=== PATIENT | female | born 1940 | race Two or more races ===

== ENCOUNTER 2022-02-14 07:37 | Inpatient (IN) | payer SELFPAY ==
[~2022-02-14] VITALS: Ht 152.4 cm; Wt 63.7 kg
[2022-02-14 08:33] LABS: BASOPHILS % 0.5 % (0.0-2.0); EOSINOPHILS % 4.8 % (0.0-5.0); HEMATOCRIT. 36.7 % (36.0-48.0); HEMOGLOBIN. 12.1 g/dL (12.0-16.0); LYMPHOCYTES % 24.6 % (20.0-50.0); MEAN CORPUSCULAR HEMOGLOBIN 29.4 pg (28.0-32.0); MEAN PLATELET VOLUME 8.9 fl (7.4-10.4); MONOCYTES % 10.3 % (2.0-8.0); NEUTROPHILS % 59.8 % (40.0-76.0); PLATELET 193 x1000/uL (130-400); RED BLOOD CELL COUNT 4.13 mill/uL (4.2-5.4); RED CELL DISTRIBUTION WIDTH 15.8 % (11.6-14.6)
[2022-02-14 08:38] LABS: CHLORIDE 113 mEq/L (98-107)
[2022-02-14] MEDS ORDERED: ALBUTEROL (0.083%) 2.5MG/3ML NEB HHN STA (08:50)
[2022-02-14] MEDS ORDERED: IPRATROPIUM BROMIDE (0.02%) 0.5MG/2.5ML NEB HHN STA (08:50)
[2022-02-14] MEDS ORDERED: METHYLPREDNISOLONE SOD SUCC 125 MG/2 ML VIAL IV STA (08:50)
[2022-02-14 09:43] LABS: BG CARBOXYHEMOGLOBIN 0.3 % (0.5-1.5); BG DEOXYHEMOGLOBIN 5.9 % (0.0-5.0); BG FRACTION INSPIRED OXYGEN 21; BG METHEMOGLOBIN 0.3 % (0.0-1.5); BG OXYGEN SATURATION 94.1 % (92.0-98.5); BG OXYHEMOGLOBIN 93.5 % (94.0-97.0); BG PCO2 28.3 mmHg (35.0-45.0); BG PH 7.369 (7.350-7.450); BG PO2 70.7 mmHg (75.0-100.0); BG SAMPLE SITE RIGHT RADIAL; BG TOTAL HEMOGLOBIN 11.8 g/dL (12.0-18.0); BG VENT MODE ROOM AIR
[2022-02-14] MEDS ORDERED: IPRATROPIUM/ALBUTEROL 0.5-3(2.5)MG/3ML NEB NEB PRN (10:30)
[2022-02-14] MEDS ORDERED: ENOXAPARIN 40MG/0.4ML SYR SUBCUT SCH (10:30)
[2022-02-14] MEDS ORDERED: CLONIDINE 0.1MG TABLET PO PRN (10:30)
[2022-02-14] MEDS ORDERED: ONDANSETRON HCL 4MG/2ML INJ IV PRN (10:30)
[2022-02-14] MEDS ORDERED: ACETAMINOPHEN 325MG TABLET PO PRN ×2 (10:30)
[2022-02-14] MEDS ORDERED: MAGNESIUM/ALUMINUM HYDROXIDE/SIMETHICONE 30ML UDC PO PRN (10:30)
[2022-02-14] MEDS ORDERED: DOCUSATE SODIUM 100MG CAPSULE PO PRN (10:30)
[2022-02-14] MEDS ORDERED: GUAIFENESIN 200MG/10ML SUGAR FREE UDC PO PRN (10:30)
[2022-02-14] MEDS ORDERED: NITROGLYCERIN 0.4MG TABLET SL SL PRN (10:30)
[2022-02-14 11:41] LABS: T4 FREE 1.14 ng/dL (0.76-1.46)
[2022-02-14] MEDS: ASPIRIN 325MG EC TABLET PO SCH (12:10)
[2022-02-14] MEDS: GUAIFENESIN/DM 600MG/30MG ER TAB 12HR PO SCH ×2 (12:10→22:04)
[2022-02-14 12:18] LABS: FOLIC ACID (FOLATE) SERUM >20 ng/mL ng/mL (>5.38); VITAMIN B12 SERUM >2000 pg/mL pg/mL (211-911)
[2022-02-14] MEDS: AMLODIPINE 10MG TABLET PO SCH (13:53)
[2022-02-14] MEDS: METHYLPREDNISOLONE SOD SUCC 125 MG/2 ML VIAL IV SCH ×2 (13:54→22:04)
[2022-02-14] MEDS: ENOXAPARIN 30MG/0.3ML SYR SUBCUT SCH (13:54)
[2022-02-14 14:22] LABS: CREATINE KINASE MB FRACTION 1.5 ng/mL (0.5-3.6)
[2022-02-14] MEDS ORDERED: SODIUM CHLORIDE 0.9% 1,000 ML IV ONE (15:15)
[2022-02-14] MEDS: IPRATROPIUM/ALBUTEROL 0.5-3(2.5)MG/3ML NEB HHN SCH ×2 (17:07→20:40)
[2022-02-14] MEDS ORDERED: ZOLPIDEM TARTRATE 5MG TABLET PO PRN (21:00)
[2022-02-14] MEDS: FAMOTIDINE 20MG TABLET PO SCH (22:04)
[2022-02-14 22:35] LABS: CREATINE KINASE 86 IU/L (26-192); CREATINE KINASE MB FRACTION <0.5 ng/mL ng/mL (0.5-3.6)
[2022-02-14 22:47] VITALS: BP 145/70
[2022-02-14 22:50] VITALS: BP 145/70
[2022-02-14 23:36] VITALS: BP 145/70
[2022-02-15] VITALS: BP 138/72
[2022-02-15] MEDS: IPRATROPIUM/ALBUTEROL 0.5-3(2.5)MG/3ML NEB HHN SCH ×6 (00:42→21:11)
[2022-02-15 04:00] VITALS: BP 136/58
[2022-02-15] MEDS: METHYLPREDNISOLONE SOD SUCC 125 MG/2 ML VIAL IV SCH ×3 (05:12→21:30)
[2022-02-15 07:52] LABS: CHLORIDE 114 mEq/L (98-107)
[2022-02-15 08:00] VITALS: BP 138/79
[2022-02-15 08:02] LABS: PHOSPHORUS 3.4 mg/dL (2.5-4.9)
[2022-02-15 08:07] LABS: HEMATOCRIT. 31.9 % (36.0-48.0); HEMOGLOBIN. 10.5 g/dL (12.0-16.0); MEAN CORPUSCULAR HEMOGLOBIN 29.3 pg (28.0-32.0); MEAN PLATELET VOLUME 9.3 fl (7.4-10.4); PLATELET 180 x1000/uL (130-400); RED BLOOD CELL COUNT 3.58 mill/uL (4.2-5.4); RED CELL DISTRIBUTION WIDTH 15.6 % (11.6-14.6)
[2022-02-15] MEDS: GUAIFENESIN/DM 600MG/30MG ER TAB 12HR PO SCH ×2 (10:15→21:30)
[2022-02-15] MEDS: AMLODIPINE 10MG TABLET PO SCH (10:15)
[2022-02-15] MEDS: ASPIRIN 325MG EC TABLET PO SCH (10:16)
[2022-02-15 12:00] VITALS: BP 142/63
[2022-02-15] MEDS: ENOXAPARIN 30MG/0.3ML SYR SUBCUT SCH (13:16)
[2022-02-15 13:32] LABS: PLATELET ESTIMATE NORMAL
[2022-02-15 16:00] VITALS: BP 126/62
[2022-02-15 20:00] VITALS: BP 118/59
[2022-02-15] MEDS: FAMOTIDINE 20MG TABLET PO SCH (21:30)
[2022-02-16] VITALS: BP 136/73
[2022-02-16] MEDS: IPRATROPIUM/ALBUTEROL 0.5-3(2.5)MG/3ML NEB HHN SCH ×6 (00:57→21:23)
[2022-02-16 04:00] VITALS: BP 119/65
[2022-02-16] MEDS: METHYLPREDNISOLONE SOD SUCC 125 MG/2 ML VIAL IV SCH ×3 (06:29→21:11)
[2022-02-16 08:00] VITALS: BP 122/69
[2022-02-16] MEDS: GUAIFENESIN/DM 600MG/30MG ER TAB 12HR PO SCH ×2 (09:00→21:08)
[2022-02-16] MEDS ORDERED: DEXTROSE 50% WATER 50ML SYRINGE IV PRN (10:00)
[2022-02-16] MEDS ORDERED: LACTULOSE 20G/30ML UDC PO SCH (10:00)
[2022-02-16] MEDS: ENOXAPARIN 30MG/0.3ML SYR SUBCUT SCH (10:09)
[2022-02-16] MEDS: AMLODIPINE 10MG TABLET PO SCH (10:10)
[2022-02-16] MEDS: ASPIRIN 325MG EC TABLET PO SCH (10:10)
[2022-02-16 11:47] VITALS: BP 157/88
[2022-02-16] MEDS: BLOOD SUGAR DIAGNOSTIC STRIP TEST SCH ×3 (13:30→21:23)
[2022-02-16] MEDS: INSULIN LISPRO 100 UNITS/ML SUBCUT SCH ×3 (14:06→21:23)
[2022-02-16 16:00] VITALS: BP 120/65
[2022-02-16 19:01] LABS: HEMATOCRIT 34.9 % (36.0-48.0); HEMOGLOBIN 11.4 g/dL (12.0-16.0); MEAN CORPUSCULAR HEMOGLOBIN 28.8 pg (28.0-32.0); MEAN CORPUSCULAR VOLUME 88.6 fL (81.0-99.0); PLATELET 202 x1000/uL (130-400); RED BLOOD CELL COUNT 3.94 mill/uL (4.2-5.4)
[2022-02-16 20:00] VITALS: BP 140/67
[2022-02-16] MEDS: FAMOTIDINE 20MG TABLET PO SCH (21:08)
[2022-02-17] VITALS: BP 103/50
[2022-02-17] MEDS: IPRATROPIUM/ALBUTEROL 0.5-3(2.5)MG/3ML NEB HHN SCH ×3 (00:49→08:53)
[2022-02-17 04:00] VITALS: BP 111/52
[2022-02-17] MEDS: METHYLPREDNISOLONE SOD SUCC 125 MG/2 ML VIAL IV SCH (05:52)
[2022-02-17] MEDS: BLOOD SUGAR DIAGNOSTIC STRIP TEST SCH ×2 (05:52→13:30)
[2022-02-17 06:11] LABS: HEMATOCRIT 29.6 % (36.0-48.0); HEMOGLOBIN 9.7 g/dL (12.0-16.0); MEAN CORPUSCULAR HEMOGLOBIN 29.1 pg (28.0-32.0); MEAN CORPUSCULAR VOLUME 89.3 fL (81.0-99.0); PLATELET 166 x1000/uL (130-400); RED BLOOD CELL COUNT 3.32 mill/uL (4.2-5.4); RED CELL DISTRIBUTION WIDTH 16.3 % (11.6-14.6)
[2022-02-17 08:00] VITALS: BP 124/62
[2022-02-17] MEDS: GUAIFENESIN/DM 600MG/30MG ER TAB 12HR PO SCH (10:02)
[2022-02-17] MEDS: AMLODIPINE 10MG TABLET PO SCH (10:02)
[2022-02-17] MEDS: ENOXAPARIN 30MG/0.3ML SYR SUBCUT SCH (10:03)
[2022-02-17] MEDS: ASPIRIN 325MG EC TABLET PO SCH (10:03)
[2022-02-17] MEDS: INSULIN LISPRO 100 UNITS/ML SUBCUT SCH ×2 (10:05→13:44)
[2022-02-17] MEDS ORDERED: AMLO10TA80 PO (11:22)
[2022-02-17] MEDS ORDERED: P20 MT (11:22)
[2022-02-17] MEDS ORDERED: GUAI-741 PO (11:22)
[2022-02-17] MEDS ORDERED: ALBU6.7H9 INH (11:22)
[2022-02-17] MEDS ORDERED: FLUT1DIS2 INH (11:22)
[2022-02-17 12:00] VITALS: BP 113/66
[2022-02-17 12:33] VITALS: BP 124/62
== END 2022-02-17 15:00 | disposition home or self-care (01) | DRG 141 ==
LOC: ER 07:51 → 7WST 09:18 → EDBEDREQ 09:37 → EDBEDREQTM 09:37 → SUPCPDRO 19:10 → ENRESERV 20:17
PROVIDERS: ADMIT Internal Medicine; ATTEND Internal Medicine
DX: J45.901 Unspecified asthma with (acute) exacerbation (principal); E87.4 Mixed disorder of acid-base balance; I21.A1 Myocardial infarction type 2; N17.9 Acute kidney failure, unspecified; D64.9 Anemia, unspecified; R09.02 Hypoxemia; E03.8 Other specified hypothyroidism; D72.829 Elevated white blood cell count, unspecified; R73.9 Hyperglycemia, unspecified; R94.6 Abnormal results of thyroid function studies; Z20.822 Contact with and (suspected) exposure to COVID-19
CPT/HCPCS: 36415; 36600; 71045; 76770; 78582; 80048; 80053; 82375; 82550; 82553; 82607; 82746; 82805; 82962; 83036; 83540; 83550; 83735; 83880; 84100; 84439; 84443; 84484; 85025; 85027; 85379; 87426; 93005; 93970; 94640; 94644; 94664; 99291; A9558; C9803; J1650; J1815; J2930

== ENCOUNTER 2023-05-25 11:42 | Emergency (ER) | payer MEDICAID ==
[~2023-05-25] VITALS: Ht 147.3 cm; Wt 62.6 kg
[~2023-05-25 11:42] MED LIST: ALBU6.7H3 INH; AMLO10TA80 PO; FLUT1DIS2 INH; GUAI-741 PO; P20 MT
[2023-05-25 11:50] VITALS: O2SAT 100
[2023-05-25 13:22] LABS: BASOPHILS % 0.7 % (0.0-2.0); EOSINOPHILS % 5.1 % (0.0-5.0); HEMATOCRIT. 32.4 % (36.0-48.0); HEMOGLOBIN. 10.5 g/dL (12.0-16.0); LYMPHOCYTES % 15.9 % (20.0-50.0); MEAN CORPUSCULAR HEMOGLOBIN 28.6 pg (28.0-32.0); MEAN CORPUSCULAR HGB CONC 32.5 g/dL (31.0-37.0); MEAN PLATELET VOLUME 8.5 fl (7.4-10.4); MONOCYTES % 12.7 % (2.0-8.0); NEUTROPHILS % 65.6 % (40.0-76.0); PLATELET 264 x1000/uL (130-400); RED BLOOD CELL COUNT 3.68 mill/uL (4.2-5.4); RED CELL DISTRIBUTION WIDTH 15.1 % (11.6-14.6)
[2023-05-25 13:30] LABS: ALANINE AMINOTRANSFERASE 14 IU/L (10-49); ALBUMIN 4.2 g/dL (3.2-4.8); ASPARTATE AMINOTRANSFERASE 20 IU/L (<34); BILIRUBIN TOTAL 0.3 mg/dL (0.1-1.0); CALCIUM 8.8 mg/dL (8.7-10.4); CARBON DIOXIDE 17 mEq/L (21-32); CHLORIDE 111 mEq/L (98-107); CREATININE 2.1 mg/dL (0.6-1.0); GLUCOSE 98 mg/dL (70-105); POTASSIUM 4.1 mEq/L (3.5-5.1); PROTEIN TOTAL 7.6 g/dL (6.0-8.3); SODIUM 139 mEq/L (136-145); UREA NITROGEN BLOOD 44 mg/dL (9-23)
[2023-05-25 13:31] LABS: INR 0.9; PROTHROMBIN TIME 10.2 sec (9.6-11.0)
[2023-05-25 14:51] VITALS: BP 152/73; PULSE 87; RESP 17; TEMP 98.3
== END 2023-05-25 14:52 | disposition home or self-care (01) ==
LOC: ER 12:33
DX: N18.9 Chronic kidney disease, unspecified (principal); J45.909 Unspecified asthma, uncomplicated
CPT/HCPCS: 36415; 80053; 85025; 93005; 99284